=== PATIENT | male | born 1980 | race Caucasian/White ===

== ENCOUNTER 2017-03-10 11:08 | Emergency (ER) | payer BC ==
[2017-03-10 11:25] VITALS: BP 125/90
--- NOTE | 2017-03-10 12:14 | UC ---
Dizzy HPI HPI Summary: ONSET OF LIGHTHEADEDNESS AND LEFT ARM NUMBNESS/TINGLING LAST NIGHT. WOKE UP THIS MORNING AND FELT A BIT BETTER. [facility] AND DID THE FULL PRACTICE. WHILE DRIVING HOME SX WORSENED AGAIN SO CAME HERE. DENIES CP, SOB, NAUSEA. HAD SIMILAR SX IN 2006 AND WAS DIAGNOSED WITH A "DYSRHYTHMIA" AND PLACED ON A CALCIUM CHANNEL AILYN. HAS BEEN OFF THIS FOR OVER A YEAR AND DOING WELL UNTIL YESTERDAY. PT REPORTS HIS BASELINE RESTING HEART RATE IS IN THE 50s. - History Of Current Complaint Chief Complaint: UCCardiac Stated Complaint: CHEST PAIN Time Seen by Provider: 03/10/17 11:10 Hx Obtained From: Patient, Family/Guest Relations Executive - Onset/Duration: Sudden Onset, Lasting Hours, Still Present Severity Initially: Moderate Severity Currently: Moderate Pain Intensity: 0 Pain Scale Used: 0-10 Numeric Character: Lightheaded Aggravating Factor(s): Nothing Alleviating Factor(s): Nothing Associated Signs And Symptoms: Negative: Nausea, Vomiting, Diaphoresis, Chest Pain, SOB, Palpitations, Unsteady Gait - Allergies/Home Medications Allergies/Adverse Reactions: Allergies Allergy/AdvReac Type Severity Reaction Status Date / Time Cefaclor [From [facility]] Allergy Hives Verified 03/10/17 11:18 Erythromycin Allergy Vomiting Verified 03/10/17 11:18 Home Medications: Home Medications Multiple Vitamin [Multi Vitamin] 1 tab PO DAILY 03/10/17 [History Confirmed ] PMH/Surg Hx/FS Hx/Imm Hx Other Cardiovascular History: DYSRHYTHMIA - Surgical History Surgical History: Yes Surgery Procedure, Year, and Place: L knee - Family History Known Family History: Positive: Cardiac Disease - father, [place] about 43, no stents (but father's twin brother has) - Social History Alcohol Use: Occasionally Substance Use Type: None Smoking Status (MU): Never Smoked Tobacco Review of Systems Constitutional: Fatigue Respiratory: Negative Cardiovascular: Negative Gastrointestinal: Negative Neurological: Paresthesia, Other - LIGHTHEADED All Other Systems Reviewed And Are Negative: Yes Physical Exam Triage Information Reviewed: Yes Appearance: Well-Appearing, No Pain Distress, Well-Nourished, Other: - APPEARS FATIGUED Vital Signs: Initial Vital Signs Temp 97.5 F 03/10/17 11:19 Pulse 57 03/10/17 11:19 Resp 15 03/10/17 11:19 BP 125/90 03/10/17 11:19 Pulse Ox 98 03/10/17 11:19 Vital Signs Reviewed: Yes Eyes: Positive: Conjunctiva Clear ENT: Positive: Hearing grossly normal Neck: Positive: Supple Respiratory Exam: Normal Cardiovascular: Positive: Bradycardia Abdomen Description: Positive: Nontender, Soft Musculoskeletal: Positive: No Edema Neurological: Positive: Alert Psychological: Positive: Normal Response To Family, Age Appropriate Behavior Skin: Negative: rashes Diagnostics - EKG Cardiac Rate: Bradycardia Cardiac Rhythm: Sinus: Normal - 57 BPM Ectopy: None ST Segment: Normal Dizzy Course/Dx - Course Course Of Treatment: TO [facility] BY PRIVATE CAR - Differential Dx/Diagnosis Provider Diagnoses: LIGHTHEADED/LEFT ARM PARESTHESIAS Discharge - Discharge Plan Condition: Stable Disposition: OTHER Discharge Disposition Comment: TO [facility] ED BY PRIVATE CAR Patient Education Materials: Paresthesia (ED), Lightheadedness (ED) Referrals: No Primary Care Phys,NOPCP [Primary Care Provider] - Additional Instructions: GO DIRECTLY TO THE ER FROM HERE FOR FURTHER EVALUATION.
== END 2017-03-10 12:10 ==
LOC: UCEAST 11:08
DX: R42 Dizziness and giddiness (principal); R20.2 Paresthesia of skin; Z88.3 Allergy status to other anti-infective agents
CPT/HCPCS: 93005; 99212; G0463

== ENCOUNTER 2018-08-29 16:14 | Emergency (ER) | payer BC ==
[2018-08-29 16:25] VITALS: BP 173/97
--- NOTE | 2018-08-29 16:50 | UC ---
UC General HPI - HPI Summary HPI Summary: 38-year-old male comes in with a chief complaint of a left arm left shoulder and left left neck numbness and tingling. He woke up with this morning at 5:30 with this. 10 years ago patient had similar symptoms and he ended up having recurrent syncope. Patient reports he was diagnosed with a compressed blood vessel in his neck. He was diagnosed with CTA. He was placed on verapamil and he improved. He is no longer on the verapamil. The symptoms remind him of that same episode. No syncope this time no chest pain no shortness of breath. He has so anxious. He is not on any blood pressure medications. - History of Current Complaint Chief Complaint: UCGeneralIllness Stated Complaint: SHOULDER AND ELBOW TINGLING Time Seen by Provider: 08/29/18 16:16 Pain Intensity: 0 - Allergy/Home Medications Allergies/Adverse Reactions: Allergies Allergy/AdvReac Type Severity Reaction Status Date / Time cefaclor [From Ceclor] Allergy Hives Verified 08/29/18 16:28 erythromycin base Allergy Vomiting Verified 08/29/18 16:28 Home Medications: Home Medications Lansoprazole CAP (NF) [Prevacid CAP (NF)] 08/29/18 [History] Fay-3 Fatty Acids (Nf) [Fish Oil (NF)] 08/29/18 [History] PMH/Surg Hx/FS Hx/Imm Hx Previously Healthy: Yes - RECURRENT SYNCOPE GI/ History: Gastroesophageal Reflux - Surgical History Surgical History: Yes Surgery Procedure, Year, and Place: L knee - Family History Known Family History: Positive: Cardiac Disease - father, [place] about 43, no stents (but father's twin brother has) - Social History Alcohol Use: Weekly Substance Use Type: None Smoking Status (MU): Never Smoked Tobacco Review of Systems All Other Systems Reviewed And Are Negative: Yes Constitutional: Positive: Negative Skin: Positive: Negative Eyes: Positive: Negative ENT: Positive: Negative Respiratory: Positive: Negative Cardiovascular: Positive: Negative Gastrointestinal: Positive: Negative Motor: Positive: Negative Neurovascular: Positive: Decreased Sensation Musculoskeletal: Positive: Other: - SEE HPI Neurological: Positive: Negative Psychological: Positive: Anxious Is Patient Immunocompromised?: No Physical Exam Triage Information Reviewed: Yes Appearance: Well-Appearing, No Pain Distress, Well-Nourished Vital Signs: Initial Vital Signs Temp 98.5 F 08/29/18 16:20 Pulse 63 08/29/18 16:20 Resp 16 08/29/18 16:20 BP 173/97 08/29/18 16:20 Pulse Ox 99 08/29/18 16:20 Vital Signs Reviewed: Yes Eye Exam: Normal Eyes: Positive: Conjunctiva Clear ENT: Positive: TMs normal Neck: Positive: Supple, Nontender, Other: - NO CAROTID BRUITS APPRECIATED Respiratory: Positive: Lungs clear, Normal breath sounds, No respiratory distress Cardiovascular: Positive: RRR Musculoskeletal: Positive: Strength Intact, ROM Intact, No Edema Neurological: Positive: Alert, Muscle Tone Normal, Other: - NL STRENGTH B/L ARMS. NO SENSATION DEFICIT ON EXAM. NL RADIAL PULSES. Psychological Exam: Normal Psychological: Positive: Normal Response To Family, Age Appropriate Behavior Skin Exam: Normal Diagnostics - EKG Cardiac Rate: Bradycardia - AT 1624 Cardiac Rhythm: Sinus: Normal - 57BPM Ectopy: None ST Segment: Normal EKG Comparison: No Significant Change - EKG FROM 03/03 Course/Dx - Course Course Of Treatment: RECOMMENDED EVAL IN EMERGENCY DEPARTMENT NOW. PATIENT PREFERS TO GO BY POV. - Diagnoses Provider Diagnosis: Paresthesia of left arm, Hypertension Discharge - Sign-Out/Discharge Documenting (check all that apply): Patient Departure All imaging exams completed and their final reports reviewed: No Studies - Discharge Plan Condition: Stable Disposition: HOME-RECOMMEND TO ED Referrals: [facility] [place] [facility] [Outside] Additional Instructions: GO DIRECTLY TO THE EMERGENCY DEPARTMENT FOR FURTHER EVALUATION. - Billing Disposition and Condition Condition: STABLE Disposition: Home-Recommend to ED
== END 2018-08-29 16:58 | disposition home health service (06) ==
LOC: UCEAST 16:14
DX: R20.2 Paresthesia of skin (principal); I10 Essential (primary) hypertension
CPT/HCPCS: 99212; G0463

== ENCOUNTER 2018-08-29 17:17 | Emergency (ER) | payer BC ==
[2018-08-29 18:32] LABS: ABS Basophils 0.1 10^3/ul (0-0.2); ABS Eosinophils 0.1 10^3/ul (0-0.6); ABS Monocytes 0.5 10^3/ul (0-0.8); ABS Neutrophils 3.9 10^3/ul (1.5-7.7); Eosinophil % 2.1 %; Hematocrit 44 % (42-52); Hemoglobin 15.3 g/dL (14.0-18.0); Lymphocyte % 30.6 %; Mean Corpuscular HGB Conc 35 g/dL (31-36); Mean Corpuscular Hemoglobin 29 pg (27-31); Mean Corpuscular Volume 84 fL (80-94); Mean Platelet Volume 8.2 fL (7.4-10.4); Nucleated Red Blood Cells % 0.1; Platelet Count 252 10^3/uL (150-450); Red Blood Count 5.27 10^6 /uL (4.18-5.48); Red Cell Distribution Width 14 % (10-15); White Blood Count 6.6 10^3/uL (3.5-10.8)
[2018-08-29 18:37] LABS: INR 1.07 (0.82-1.09)
[2018-08-29 18:49] LABS: Albumin 4.6 g/dL (3.2-5.2); Albumin/Globulin Ratio 1.5 (1-3); BUN/Creatinine Ratio 12.8 (8-20); C Reactive Protein 1.97 mg/L (<8.01); Calcium 9.8 mg/dL (8.6-10.3); EGFR African American 91.1 (>60); EGFR Non-African American 75.3 (>60); Globulin 3.1 g/dL (2-4); Magnesium 2.2 mg/dL (1.9-2.7); Potassium 4.4 mmol/L (3.5-5.0); Total Bilirubin 0.5 mg/dL (0.2-1.0); Total Protein 7.7 g/dL (6.4-8.9)
[2018-08-29] MEDS ORDERED: Iohexol 350* (CONTRAST) 500 ML MDV IV ONE (19:38)
--- NOTE | 2018-08-29 22:39 | ED ---
Neck Pain - HPI Summary HPI Summary: Patient from [facility] to the ED for further evaluation of left neck pain with numbness and tingling in left arm and left shoulder. Patient states he woke up with these symptoms this morning. Patient concerned because 10 years ago he had the same symptoms and was with accompanying recurrent syncope and was diagnosed with a compressed artery in his neck due to muscle spasms. Patient states he was diagnosed by CTA, and patient was placed on verapamil for 5 years. Patient is no longer taking verapamil, denies any symptoms of syncope. Just concerned. Denies trauma, headache, focal deficits, fever, cough , sore throat, CP, SOB, N/V/D, abdominal pain, change in urine, change in BM. Medical history is gastroparesis. - History of Current Complaint Chief Complaint: EDNeckComplaint Stated Complaint: "LEFT SHOULDER TINGLING PER PTFROM [facility]" Time Seen by Provider: 08/29/18 17:40 Hx Obtained From: Patient Onset/Duration Of Injury/Symptoms: Hours Mechanism Of Injury: No Known Trauma Timing: Constant Onset/Duration: Started hours ago Severity Currently: None Pain Intensity: 0 Pain Scale Used: 0-10 Numeric Character: Other: Aggravating Factors: Nothing Alleviating Factors: Nothing Associated Signs & Symptoms: Positive: Negative - Allergies/Home Medications Allergies/Adverse Reactions: Allergies Allergy/AdvReac Type Severity Reaction Status Date / Time cefaclor [From [facility]] Allergy Hives Verified 08/29/18 16:28 erythromycin base Allergy Vomiting Verified 08/29/18 16:28 Home Medications: Home Medications Metoclopramide TAB* [Reglan TAB*] 5 mg PO TID 08/29/18 [History Confirmed ] Multivitamins/Minerals TAB* [Theragran/minerals TAB*] 1 tab PO DAILY 08/29/18 [ History Confirmed 08/29/18] Cliff-3 Fatty Acids (Nf) [Fish Oil (NF)] 1,000 mg PO DAILY 08/29/18 [History Confirmed 08/29/18] PMH/Surg Hx/FS Hx/Imm Hx Endocrine/Hematology History: Denies: Hx Diabetes Cardiovascular History: Reports: Other Cardiovascular Problems/Disorders - In 2005, heart arrhythmia Denies: Hx Hypertension History: Denies: Hx Renal Disease Sensory History: Denies: Hx Legally Blind Opthamlomology History: Denies: Hx Eye Prosthesis EENT History: Denies: Hx Deafness Neurological History: Denies: Hx Dementia Psychiatric History: Denies: Hx Autism - Surgical History Surgery Procedure, Year, and Place: L knee - Immunization History Immunizations Up to Date: Yes Infectious Disease History: No Infectious Disease History: Reports: Hx Shingles Denies: Traveled Outside the [place] in Last 30 Days - Family History Known Family History: Positive: Cardiac Disease - father, [place] about 43, no stents (but father's twin brother has) - Social History Alcohol Use: Weekly Hx Substance Use: No Substance Use Type: Reports: None Hx Tobacco Use: No Smoking Status (MU): Never Smoked Tobacco Review of Systems Constitutional: Negative Eyes: Negative ENT: Negative Cardiovascular: Negative Respiratory: Negative Gastrointestinal: Negative Genitourinary: Negative Musculoskeletal: Negative Skin: Negative Positive: Paresthesia Psychological: Normal All Other Systems Reviewed And Are Negative: Yes Physical Exam - Summary 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 Normal flexion and extension of bilateral upper extremities. No pain with palpation of neck. Full range of motion of neck and jaw. Triage Information Reviewed: Yes Vital Signs On Initial Exam: Initial Vitals Temp Pulse Resp BP Pulse Ox 97.8 F 63 14 139/95 96 08/29/18 17:20 08/29/18 17:20 08/29/18 17:20 08/29/18 17:20 08/29/18 17:20 Vital Signs Reviewed: Yes Appearance: Positive: Well-Appearing Skin: Positive: Warm Head/Face: Positive: Normal Head/Face Inspection Eyes: Positive: Normal ENT: Positive: Normal ENT inspection Neck: Positive: Supple Respiratory/Lung Sounds: Positive: Clear to Auscultation Cardiovascular: Positive: Normal Abdomen Description: Positive: Nontender Musculoskeletal: Positive: Normal Neurological: Positive: Normal Psychiatric: Positive: Normal AVPU Assessment: Alert - Kira Coma Scale Best Eye Response: 4 - Spontaneous Best Motor Response: 6 - Obeys Commands Best Verbal Response: 5 - Oriented Coma Scale Total: 15 Diagnostics - Vital Signs Vital Signs Temp Pulse Resp BP Pulse Ox 08/29/18 22:00 55 14 95 08/29/18 21:48 65 14 112/87 95 08/29/18 21:45 63 16 96 08/29/18 21:30 62 15 95 08/29/18 21:18 58 17 119/83 95 08/29/18 21:15 53 16 96 08/29/18 21:01 57 16 95 08/29/18 20:45 15 08/29/18 20:30 57 14 95 08/29/18 20:17 58 15 130/81 95 08/29/18 20:15 60 16 96 08/29/18 20:00 56 17 95 08/29/18 19:47 60 15 129/88 95 08/29/18 19:45 56 16 95 08/29/18 19:30 64 17 95 08/29/18 19:17 61 19 129/91 95 08/29/18 19:15 57 17 94 08/29/18 19:00 63 15 94 08/29/18 18:47 66 25 126/74 94 08/29/18 18:45 58 14 96 08/29/18 18:30 63 19 95 08/29/18 18:17 55 14 140/84 97 08/29/18 17:20 97.8 F 63 14 139/95 96 - Laboratory Lab Results: Lab Results 08/29/18 08/29/18 08/29/18 Range/Units 18:21 18:21 18:21 WBC 6.6 (3.5-10.8) 10^3/uL RBC 5.27 (4.18-5.48) 10^6 /uL Hgb 15.3 (14.0-18.0) g/dL Hct 44 (42-52) % MCV 84 (80-94) fL MCH 29 (27-31) pg MCHC 35 (31-36) g/dL RDW 14 (10-15) % Plt Count 252 (150-450) 10^3/uL MPV 8.2 (7.4-10.4) fL Neut % (Auto) 58.8 % Lymph % (Auto) 30.6 % [place] % (Auto) 7.6 % Eos % (Auto) 2.1 % Baso % (Auto) 0.9 % Absolute Neuts (auto) 3.9 (1.5-7.7) 10^3/ul Absolute Lymphs (auto) 2.0 (1.0-4.8) 10^3/ul Absolute Monos (auto) 0.5 (0-0.8) 10^3/ul Absolute Eos (auto) 0.1 (0-0.6) 10^3/ul Absolute Basos (auto) 0.1 (0-0.2) 10^3/ul Absolute Nucleated RBC 0.0 10^3/ul Nucleated RBC % 0.1 INR (Anticoag Therapy) 1.07 (0.82-1.09) Sodium 139 (135-145) mmol/L Potassium 4.4 (3.5-5.0) mmol/L Chloride 104 (101-111) mmol/L Carbon Dioxide 29 (22-32) mmol/L Anion Gap 6 (2-11) mmol/L BUN 14 (6-24) mg/dL Creatinine 1.09 (0.67-1.17) mg/dL Est GFR ( Amer) 91.1 (>60) Est GFR (Non-Af Amer) 75.3 (>60) BUN/Creatinine Ratio 12.8 (8-20) Glucose 100 (70-100) mg/dL Calcium 9.8 (8.6-10.3) mg/dL Magnesium 2.2 (1.9-2.7) mg/dL Total Bilirubin 0.50 (0.2-1.0) mg/dL AST 26 (13-39) U/L ALT 45 (7-52) U/L Alkaline Phosphatase 87 (34-104) U/L Troponin I 0.00 (<0.04) ng/mL C-Reactive Protein 1.97 (<8.01) mg/L Total Protein 7.7 (6.4-8.9) g/dL Albumin 4.6 (3.2-5.2) g/dL Globulin 3.1 (2-4) g/dL Albumin/Globulin Ratio 1.5 (1-3) 08/29/18 Range/Units 21:10 WBC (3.5-10.8) 10^3/uL RBC (4.18-5.48) 10^6 /uL Hgb (14.0-18.0) g/dL Hct (42-52) % MCV (80-94) fL MCH (27-31) pg MCHC (31-36) g/dL RDW (10-15) % Plt Count (150-450) 10^3/uL MPV (7.4-10.4) fL Neut % (Auto) % Lymph % (Auto) % [place] % (Auto) % Eos % (Auto) % Baso % (Auto) % Absolute Neuts (auto) (1.5-7.7) 10^3/ul Absolute Lymphs (auto) (1.0-4.8) 10^3/ul Absolute Monos (auto) (0-0.8) 10^3/ul Absolute Eos (auto) (0-0.6) 10^3/ul Absolute Basos (auto) (0-0.2) 10^3/ul Absolute Nucleated RBC 10^3/ul Nucleated RBC % INR (Anticoag Therapy) (0.82-1.09) Sodium (135-145) mmol/L Potassium (3.5-5.0) mmol/L Chloride (101-111) mmol/L Carbon Dioxide (22-32) mmol/L Anion Gap (2-11) mmol/L BUN (6-24) mg/dL Creatinine (0.67-1.17) mg/dL Est GFR ( Amer) (>60) Est GFR (Non-Af Amer) (>60) BUN/Creatinine Ratio (8-20) Glucose (70-100) mg/dL Calcium (8.6-10.3) mg/dL Magnesium (1.9-2.7) mg/dL Total Bilirubin (0.2-1.0) mg/dL AST (13-39) U/L ALT (7-52) U/L Alkaline Phosphatase (34-104) U/L Troponin I 0.00 (<0.04) ng/mL C-Reactive Protein (<8.01) mg/L Total Protein (6.4-8.9) g/dL Albumin (3.2-5.2) g/dL Globulin (2-4) g/dL Albumin/Globulin Ratio (1-3) Result Diagrams: 08/29/18 18:21 08/29/18 18:21 Lab Statement: Any lab studies that have been ordered have been reviewed, and results considered in the medical decision making process. Neck Course/Dx - Course Course Of Treatment: Patient from [facility] to the ED for further evaluation of left neck pain with numbness and tingling in left arm and left shoulder. Patient states he woke up with these symptoms this morning. Patient concerned because 10 years ago he had the same symptoms and was with accompanying recurrent syncope and was diagnosed with a compressed artery in his neck due to muscle spasms. Patient states he was diagnosed by CTA, and patient was placed on verapamil for 5 years. Patient is no longer taking verapamil, denies any symptoms of syncope. Just concerned. Denies trauma, headache, focal deficits, fever, cough, sore throat, CP, SOB, N/V/D, abdominal pain, change in urine, change in BM. Medical history is gastroparesis. 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 Normal flexion and extension of bilateral upper extremities. No pain with palpation of neck. Full range of motion of neck and jaw. Vital signs within normal limits. Labs unremarkable. CTA of neck unremarkable. Diagnosis radiculopathy. - Diagnoses Provider Diagnoses: Radiculopathy affecting upper extremity Discharge - Sign-Out/Discharge Documenting (check all that apply): Patient Departure Patient Received Moderate/Deep Sedation with Procedure: No - Discharge Plan Condition: Stable Disposition: HOME Patient Education Materials: Cervical Radiculopathy (ED) Referrals: Bella Carter MD [Primary Care Provider] - Additional Instructions: Ibuprofen 800 mg 3 times a day for 4 days. Return to the ED for any new or worsening symptoms. - Billing Disposition and Condition Condition: STABLE Disposition: Home
[2018-08-29 22:56] VITALS: BP 131/81
== END 2018-08-29 22:55 | disposition home or self-care (01) ==
LOC: ED 17:17
DX: M54.10 Radiculopathy, site unspecified (principal); Z79.899 Other long term (current) drug therapy
CPT/HCPCS: 36415; 70498; 71045; 80053; 83735; 84484; 85025; 85610; 86140; 93005; 99283; Q9967

== ENCOUNTER 2019-05-18 14:50 | Emergency (ER) | payer BC ==
--- OUTSIDE RECORDS SUMMARY | 2019-05-18 14:57 | XMS REPORT | Summary of Care ---
:1980 Author Organization [facility] Address [address] [address] Care Team Providers Name Role Phone Bella Carter Primary Care Provider Reason for Referral Refer to Department Only (Routine) Status Reason Specialty Diagnoses / Referred By Referred To Procedures Contact Contact Pending Review PAIN CLINIC / Diagnoses C6 radiculopathy [facility] [address] [place] [address] [address] Scheduling Instructions To refer a patient to the Interventional Pain Clinic please call Please have the following ready: -Symptoms of the patient being referred -Recent films if available, NOT REQUIRED! -Known prior treatments Please be aware that we do not do medical management. Refer to Department Only (Routine) Status Reason Specialty Diagnoses / Referred By Referred To Contact Procedures Contact Pending Neurodiagnostic Diagnoses C6 radiculopathy Santosh rosales Neurodiagnostics Review [facility] [address] [phone] [address] [address] Reason for Visit Reason Comments New Patient Neck Pain Shoulder Pain left Arm Pain left Encounter Details Date Type Department Care Team Description 03/25/2019 Office Visit [facility] Td Frost, C6 radiculopathy [address] [facility] (Primary Dx) [place] [id number] [address] [phone] [place] [address] [phone] Allergies Active Allergy Reactions Severity Noted Date Comments Azithromycin GI Reaction 08/21/2017 Pt states this makes him feel very sick Cefaclor Monohydrate Dermatologic Reaction 08/21/2017 Pt states he developed hives documented as of this encounter (statuses as of 03/25/2019) Medications Medication Sig Dispensed Refills Start Date End Date Status Multiple Take 1 Tab 0 Active Vitamins-Minerals by mouth (MULTIVITAL PO) DAILY. PROTEIN PO Take by 0 Active mouth. 20g QAM and 20g QPM [place]-3 Fatty Acids Take by 0 Active (FISH OIL PO) mouth DAILY. Lansoprazole 30 MG Take 30 mg 30 Cap 5 07/10/2018 Active Oral CAPSULE DELAYED by mouth RELEASE DAILY 0700 on Empty Stomach. metoclopramide TAKE 1 90 Tab 5 01/26/2019 Active (REGLAN) 5 MG Oral TABLET BY Tab MOUTH THREE TIMES DAILY predniSONE Take 4 Tabs 20 Tab 0 01/22/2019 Discontinued (DELTASONE) 10 MG by mouth 0 (Patient stopped Oral TabIndications: DAILY. the medication) Left arm numbness documented as of this encounter (statuses as of 03/25/2019) Active Problems Problem Noted Date H/O syncope 08/21/2017 Overview: In 2005 ,had evaluation at [facility] ,neurology Dr Wooten , cardiology -suspected carotid compression from muscle spasm Anxiety 08/21/2017 Overview: Self coping documented as of this encounter (statuses as of 03/25/2019) Social History Tobacco Use Types Packs/Day Years Used Date Never Smoker Smokeless Tobacco: Former User Chew Tobacco Cessation: Counseling Given: No Comments: Quit smokeless tobacco in college Alcohol Use Drinks/Week oz/Week Comments Yes 3-4 glasses of wine week ,occasinal beer Sex Assigned at Date Recorded Not on file Job Start Date Occupation Industry Not on file Not on file Not on file Travel History Travel Start Travel End No recent travel history available. documented as of this encounter Last Filed Vital Signs Vital Sign Reading Time Taken Comments Blood Pressure 140/82 03/25/2019 8:17 AM EST Pulse - - Temperature - - Respiratory Rate - - Oxygen Saturation - - Inhaled Oxygen Concentration - - Weight 90.1 kg (198 lb 9.6 oz) 03/25/2019 8:17 AM EST Height 175.3 cm (5' 9") 03/25/2019 8:17 AM EST Body Mass Index 29.33 03/25/2019 8:17 AM EST documented in this encounter Progress Notes Td Frost PA - 03/25/2019 8:00 AM EST [facility] PATIENT: Paulo Fritz : 1980 Date of Service: 03/25/2019 REFERRING PROVIDER: Self-Referred PCP: Bella Carter CHIEF COMPLAINT: Evaluation of chronic neck and left pain, new patient SUBJECTIVE: Paulo Fritz is a 39-y.o. male with a PMHX as listed below presents for evaluation of four months of neck and left arm pain with sensory symptoms. He reports that in November he was at a wrestling training, hurt his neck then between getting numbness in the left and right arm. Initially it felt like the whole arm was numb and burning constantly. He was sent to PT and doing home stretches with traction device and feels improved. Pain is intermittent into the base of the neck with radiation into the left trapezius and shoulder. The numbness/burning symptoms in the same areas as pain with further radiation in the lateral arm, forearm, into the the thumb and index finger. He feels the symptoms are better but seems to get worse at night when sleeping depending on his position. The numbness will wake him and he will have to shake the arm and sit up to get relief. 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 He has had two courses of steroids with improvement and takes IBU as needed. He denies any gait, bowel, or bladder dysfunction. History reviewed. No pertinent past medical history. History reviewed. No pertinent surgical history. Family History Problem Relation Age of Onset Heart Father Anxiety Father Hypertension Father Heart Disease Father Dementia Maternal Grandmother CHF Maternal Grandfather at 98 Heart Paternal Grandfather passed because of [place] Heart Disease Paternal Grandfather Other Diagnosed Disorder Brother healthy otherwise Anxiety Brother Cancer Paternal Grandmother brain cancer Other Diagnosed Disorder Brother healthy otherwise Anxiety Brother Arthritis No family history Anesth Problems No family history Clotting Disorder No family history Diabetes No family history Kidney Disease No family history Thyroid Disease No family history Social History Socioeconomic History Marital status: Spouse name: Not on file Number of children: Not on file Years of education: Not on file Highest education level: Not on file Occupational History Not on file Social Needs Financial resource strain: Not on file Food insecurity Worry: Not on file Inability: Not on file Transportation needs Medical: Not on file Non-medical: Not on file Tobacco Use Smoking status: Never Smoker Smokeless tobacco: Former User Types: Chew Tobacco comment: Quit smokeless tobacco in college Substance and Sexual Activity Alcohol use: Yes Comment: 3-4 glasses of wine week ,occasinal beer Drug use: No Sexual activity: Yes Lifestyle Physical activity Days per week: Not on file Minutes per session: Not on file Stress: Not on file Relationships Social connections Talks on phone: Not on file Gets together: Not on file Attends pentecostal service: Not on file Active member of club or organization: Not on file Attends meetings of clubs or organizations: Not on file Relationship status: Not on file Intimate partner violence Fear of current or ex partner: Not on file Emotionally abused: Not on file Physically abused: Not on file Forced sexual activity: Not on file Other Topics Concern Not on file Social History 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 metoclopramide (REGLAN) 5 MG Oral Tab TAKE 1 TABLET BY MOUTH THREE TIMES DAILY Multiple Vitamins-Minerals (MULTIVITAL PO) Take 1 Tab by mouth DAILY. [place]-3 Fatty Acids (FISH OIL PO) Take by mouth DAILY. PROTEIN PO Take by mouth. 20g QAM and 20g QPM No current facility-administered medications for this visit. Allergies Allergen Reactions Azithromycin GI Reaction Pt states this makes him feel very sick Ceclor [Cefaclor Monohydrate] Dermatologic Reaction Pt states he developed hives Review of Systems: Constitutional : negative for - chills, fever, weight gain or weight loss Ophthalmic: negative for - blurry vision, visual disturbancy ENT: negative for - hearing change, hoarseness, voice change Heme/Lymph: negative for - blood clots, bruising or jaundice Respiratory: negative for: cough, shortness of breath, or wheezing Cardiovascular: negative for: chest pain or dyspnea on exertion Gastrointestinal: negative for: abdominal pain, change in bowel habits, or black or bloody stools Genito-Urinary: negative for: dysuria, trouble voiding, or hematuria Musculoskeletal: positive for neck and left pain Endocrine: negative for - unexpected weight changes Neurological: negative for: TIA or stroke symptoms, bladder/bowel dysfunction Dermatological: negative for - skin lesion changes Physical Exam BP 140/82 | Ht 5' 9" (1.753 m) | Wt 198 lb 9.6 oz (90.1 kg) | BMI 29.33 kg/m Body mass indexis 29.33 kg/m. This is a well-developed well-nourished male in no acute distress. 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 Lower Extremity Hip Flexion Knee Flexion Dorsi Flexion Plantar Flexion Right 5/5 5/5 5/5 5/5 Left 5/5 5/5 5/5 5/5 SENSATION: Light touch sensation dulled over the C6 distribution, otherwise normal sensation to touch, vibration, and temperature. Mild pain to palpation of the midline cervical spine and paraspinal muscles. REFLEXES: Biceps BR Triceps Knee Ankle Right 2 2 2 2 2 Left 2 2 2 2 2 Saldaña's sign: Absent Clonus: Absent COORDINATION: Normal rapid alternating movements and no evidence of dysdiadochokinesia. GAIT AND STATION: Normal Radiological Studies: I personally reviewed the following imaging studies. 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 There is a small disc protrusion at C5-6 on the left. Assessment and Plan: ICD-9-CM ICD-10-CM 1. C6 radiculopathy 723.4 M54.12 REFER TO EMG REFER TO PAIN CLINIC Patient with four months of neck and left arm pain/sensory symptoms fitting to C6 distribution. He has been improving with conservative therapies Does have some findings from peripheral neuropathy in the left arm as well with positive Tinels at the wrist and elbow. Recommended he continue with conservative therapy and will have him see PM regarding cervical ADRIAN. Also feel EMG of the left arm to ensure there is fully C6 issue without some kind of complex with peripheral neuropathies would be helpful for possible surgical decisions if he does not improve. If it is a pure C6 radic, he has the option of artifical disc replacement at C5- 6. Will have him follow up with me about two weeks after the EMG is done. Author: [place] 03/25/2019 08:57 documented in this encounter Plan of Treatment Date Type Specialty Care Team Description 04/02/2019 Appointment Neurodiagnostic 04/15/2019 Office Visit Neurosurgery Td Frost PA [address] [address] 04/30/2019 Office Visit Pain Clinic [facility] Romario Alvarez MD [address] [address] 07/21/2019 Office Visit Internal Medicine Bella Carter MD [address] [address] Name Type Priority Associated Diagnoses Order Schedule REFER TO EMG Referral Routine C6 radiculopathy Expected: 03/25/2019, Expires: 03/25/2020 REFER TO PAIN CLINIC Referral Routine C6 radiculopathy Expected: 03/25/2019 , Expires: 03/25/2020 Health Maintenance Due Date Last Done Comments DTaP/Tdap/Td Vaccines (1 - Tdap) 1990 DEPRESSION SCREENING 08/21/2018 08/21/2017 DIABETES SCREENING 11/08/2018 11/08/2017 INFLUENZA VACCINE (#1) 2018 LIPID DISORDER SCREENING 11/08/2022 11/08/2017 HIV SCREENING Completed 11/08/2017 HEPATITIS A IMMUNIZATION SERIES Aged Out No longer eligible based on patient's age to complete this topic HPV IMMUNIZATION SERIES Aged Out No longer eligible based on patient's age to complete this topic MENINGOCOCCAL VACCINE IMM Aged Out No longer eligible based on patient's age to complete this topic PNEUMOCOCCAL 0-64 YRS Aged Out No longer eligible based on patient's age to complete this topic documented as of this encounter Results Not on filedocumented in this encounter Visit Diagnoses Diagnosis C6 radiculopathy Brachial neuritis or radiculitis nos documented in this encounter Insurance Payer Benefit Plan / Subscriber ID Effective Dates Phone Address Type Group DUANE JOHNSON xxxxxxxxxxxx 2016-Present [employer] PPO (Home) [place], [place] [phone] [id number] (Work) documented as of this encounter
[2019-05-18 15:32] VITALS: BP 113/70
[2019-05-18] MEDS ORDERED: Ibuprofen TAB* 600 MG PO ONE (15:37)
[2019-05-18 16:30] LABS: Influenza A Molecular POSITIVE (Negative)
[2019-05-18] MEDS ORDERED: Ondansetron ODT TAB* 4 MG SL ONE (16:52)
--- NOTE | 2019-06-24 15:14 | UC ---
FLU HPI - HPI Summary HPI Summary: 39 year old male with no PMH presents with flu like symptoms. + fever, vomiting, chills, dry cough. + dizziness starting last night. No syncope - History of Current Complaint Chief Complaint: UCRespiratory Stated Complaint: FEVER,VOMITING Time Seen by Provider: 05/18/19 16:06 Hx Obtained From: Patient Onset/Duration: Sudden Onset, Lasting Days Severity Currently: Mild Severity Initially: Mild Pain Intensity: 2 Pain Scale Used: 0-10 Numeric Associated Signs & Symptoms: Positive: Fever, F/C, Myalgia, Cough, Headache Related Hx: Possible Flu/Infectious Exposure - Allergy/Home Medications Allergies/Adverse Reactions: Allergies Allergy/AdvReac Type Severity Reaction Status Date / Time cefaclor [From [facility]] Allergy Hives Verified 05/18/19 15:32 erythromycin base Allergy Vomiting Verified 05/18/19 15:32 Home Medications: Home Medications Metoclopramide TAB* [Reglan TAB*] 5 mg PO TID 08/29/18 [History Confirmed ] Multivitamins/Minerals TAB* [Theragran/minerals TAB*] 1 tab PO DAILY 08/29/18 [ History Confirmed 05/18/19] [place]-3 Fatty Acids (Nf) [Fish Oil (NF)] 1,000 mg PO DAILY 08/29/18 [History Confirmed 05/18/19] Lansoprazole 15 mg PO DAILY 05/18/19 [History Confirmed 05/18/19] Ondansetron ODT TAB* [Zofran 4 MG Odt TAB*] 4 mg PO Q8H PRN #5 tab.odt 05/18/19 [Rx] Oseltamivir CAP* [Tamiflu CAP*] 75 mg PO BID #10 cap 05/18/19 [Rx] PMH/Surg Hx/FS Hx/Imm Hx Previously Healthy: Yes - Surgical History Surgical History: Yes Surgery Procedure, Year, and Place: L knee - Family History Known Family History: Positive: Cardiac Disease - father, MA about 43, no stents (but father's twin brother has) - Social History Occupation: Employed Full-time Alcohol Use: Weekly Substance Use Type: None Smoking Status (MU): Never Smoked Tobacco Review of Systems All Other Systems Reviewed And Are Negative: Yes Constitutional: Positive: Fever, Chills, Fatigue ENT: Positive: Sore Throat, Ear Ache, Sinus Congestion Respiratory: Positive: Cough Gastrointestinal: Positive: Nausea Genitourinary: Positive: Negative Motor: Positive: Negative Psychological: Positive: Negative Is Patient Immunocompromised?: No Physical Exam Triage Information Reviewed: Yes Appearance: No Pain Distress, Well-Nourished, Ill-Appearing - mild to moderate Vital Signs: Initial Vital Signs Temp 102.8 F 05/18/19 15:27 Pulse 104 05/18/19 15:27 Resp 16 05/18/19 15:27 BP 113/70 05/18/19 15:27 Pulse Ox 98 05/18/19 15:27 Vital Signs Reviewed: Yes Eyes: Positive: Conjunctiva Clear ENT: Positive: Pharyngeal erythema - minimal, TMs normal. Negative: Tonsillar swelling, Tonsillar exudate, Sinus tenderness Dental Exam: Normal Neck: Positive: Supple, Nontender Respiratory: Positive: Chest non-tender, Lungs clear, Normal breath sounds, No respiratory distress, No accessory muscle use. Negative: Respiratory distress, Accessory muscle use Cardiovascular: Positive: RRR, No Murmur Neurological Exam: Normal Psychological Exam: Normal Skin Exam: Normal Flu Course/Dx - Course Course Of Treatment: - Alternate Motrin 800mg orally (take every 6 hours) then 3-4 hours later TYlenol 650mg (every 6 hours) to keep fever down. - Increase fluid intake to prevent dehydration due to elevate temperature, mouth breathing, vomiting - Humidifier at night to help with coughing - Good Hygiene, hand washing to prevent spread - Over the counter medications for symptoms - Tamiflu as directed - Work note given - ER if fever does not go down despite medication, abdominal pain, difficulty breathing/ swallowing. - Differential Dx/Diagnosis Provider Diagnosis: Influenza A Discharge ED - Sign-Out/Discharge Documenting (check all that apply): Patient Departure All imaging exams completed and their final reports reviewed: No Studies - Discharge Plan Condition: Fair Disposition: HOME Prescriptions: Ondansetron ODT TAB* [Zofran 4 MG Odt TAB*] 4 mg PO Q8H PRN #5 tab.odt PRN Reason: nausea, vomiting Oseltamivir CAP* [Tamiflu CAP*] 75 mg PO BID #10 cap Patient Education Materials: Influenza (ED) Forms: *Work Release Referrals: Bella Carter MD [Primary Care Provider] - Additional Instructions: - Alternate Motrin 800mg orally (take every 6 hours) then 3-4 hours later TYlenol 650mg (every 6 hours) to keep fever down. - Increase fluid intake to prevent dehydration due to elevate temperature, mouth breathing, vomiting - Humidifier at night to help with coughing - Good Hygiene, hand washing to prevent spread - Over the counter medications for symptoms - Tamiflu as directed - Work note given - ER if fever does not go down despite medication, abdominal pain, difficulty breathing/ swallowing. - Billing Disposition and Condition Condition: FAIR Disposition: Home
== END 2019-05-18 17:08 | disposition home or self-care (01) ==
LOC: UCEAST 14:50
DX: J10.1 Influenza due to other identified influenza virus with other respiratory manifestations (principal); Z88.1 Allergy status to other antibiotic agents
CPT/HCPCS: 99212; A9270-GY; G0463